=== PATIENT | male | born 1980 | race Caucasian/White ===

== ENCOUNTER → 2016-06-17 | Emergency (ER) | payer MEDICAID, OTHER ==
[~2016-06-17] VITALS: Ht 177.8 cm; Wt 115.6 kg
[~2016-06-17] MED LIST: ACET500C5 PO; ALPR1TAB2 PO; FAMO-18 PO; FAMOTIDINE 20 MG TAB PO ONE; LIDOCAINE/MYLANTA 40 ML BTL PO ONE; MECL-77 PO; OMEP20CA16 PO; ONDA4TAB8 PO
[2016-06-17 23:50] VITALS: Ht 177.8 cm; Wt 115.6 kg
--- NOTE | 2016-06-18 01:19 | RADRPT ---
PROCEDURE: XR Chest. CLINICAL INDICATION: Chest pain. TECHNIQUE: Portable AP view of the chest was obtained. COMPARISON: 08/05/2015 FINDINGS: The cardiomediastinal silhouette is within normal limits. Area of lingular scarring or chronic subs egmental atelectasis is again noted, the remaining lung parenchyma is clear without evidence of pneu monia. There is no evidence for pleural effusion, pneumothorax or pulmonary vascular congestion. T he osseous structures are intact with no evidence for acute abnormality. RPTAT:HJJR IMPRESSION: No evidence for acute intrathoracic pathology or change from 08/05/2015. Physician Mariano Date Time Electronically viewed and signed by Physician Mariano on 06/18/2016 01:19 /
[2016-06-18 02:47] VITALS: BP 157/97; PULSE 68; RESP 15; TEMP 97.6
--- NOTE | 2016-06-18 02:49 | ERD ---
ER Documentation Chief Complaint Date/Time DATE: 06/18/16 TIME: 02:45 Chief Complaint left shoulder pain extending to chest wall x 1 month denies injury HPI 35-year-old male with a past medical history of hypertension presents the ED complaining of chest pain that started intermittently 2 months ago. States that it is worse with eating. States that his primary care physician diagnosed him with acid reflux. Reports that he was taking a acid reflux medication but stopped taking it. States that it was making his symptoms feel better. Denies any dyspnea on exertion, pleuritic chest pain, wheezing, cough, fever, abdominal pain, nausea, vomiting. Denies any family history of heart attacks. States that he was a previous smoker and previously used cocaine however denies any current use of drugs, cigarette use, alcohol use. ROS All systems reviewed and are negative except as per history of present illness. Medications Home Meds Active Scripts Omeprazole* (Omeprazole*) 20 Mg Capsule.dr, 20 MG PO BID, #20 TAB Prov:DEBBIE VIERA PA-C 06/18/16 Alprazolam* (Xanax*) 1 Mg Tab, 1 MG PO Q8H Y for ANXIETY, #20 TAB Prov:RASHIDA ZAVALA NP 09/17/15 Meclizine Hcl* (Meclizine Hcl*) 25 Mg Tablet, 25 MG PO Q8H Y for DIZZINESS, #20 TAB Prov:SAMSON PACHECO PA-C 09/11/15 Ondansetron Hcl* (Zofran*) 4 Mg Tablet, 4 MG PO Q6H for NAUSEA AND/OR VOMITING, #30 TAB Prov:SAMSON PACHECO PA-C 09/11/15 Acetaminophen* (Tylophen*) 500 Mg Capsule, 1 CAP PO Q6H Y for PAIN AND OR ELEVATED TEMP, #16 CAP Prov:MADAN LECHUGA MD 08/05/15 Famotidine* (Pepcid*) 20 Mg Tablet, 20 MG PO BID for 10 Days, TAB Prov:MADAN LECHUGA MD 08/05/15 Allergies Allergies: Coded Allergies: Penicillins (Verified Allergy, Unknown, 09/17/15) PMhx/Soc Medical and Surgical Hx: pt denies Surgical Hx History of Surgery: Yes ("EAR surgery" WHEN HE WAS A ) Anesthesia Reaction: No Hx Neurological Disorder: No Hx Respiratory Disorders: No Hx Cardiac Disorders: Yes (hypertension) Hx Psychiatric Problems: Yes (anxiety) Hx Miscellaneous Medical Probl: No Hx Alcohol Use: Yes (QUIT 1YR 8 MOS AGO) Hx Substance Use: Yes (QUIT COCAINE 1YR 8 MOS AGO) Hx Tobacco Use: No (QUIT 1YR 8 MOS AGO) Smoking Status: Former smoker Physical Exam Vitals Vital Signs Date Time Temp Pulse Resp B/P Pulse Ox O2 Delivery O2 Flow Rate FiO2 06/17/16 23:50 98.4 66 20 164/96 97 Physical Exam Const: [id number], well-nourished. In no acute distress. Head: Atraumatic, normocephalic Eyes: Normal Conjunctiva without injection. No purulent discharge. PERRL. EOMI ENT: Normal external ear. Ear canal without erythema. Tympanic membrane pearly ivey without effusion or bulging. Nasal canal clear with normal turbinates. Moist oropharynx without tonsillar exudates. Non-erythematous pharynx. Uvula midline. No drooling. No trismus. Neck: Full range of motion. No meningismus. No cervical lymphadenopathy. Resp: Clear to auscultation bilaterally. No wheezing, rhonchi, rales, or crackles. No accessory muscle use. No retractions. Cardio: Regular rate and rhythm. No murmurs, rubs or gallops. Abd: Soft, non tender, non distended. Normal bowel sounds. No palpable masses. No rebound tenderness. No guarding. Skin: No petechiae or rashes Back: No midline tenderness. No CVA tenderness. Ext: No cyanosis, or edema. Neur: Awake and alert. Psych: Normal Mood and Affect Results 24 hrs Current Medications Medications (Trade) Dose Ordered Sig/Sonia Route PRN Reason Start Time Stop Time Status Last Admin Dose Admin Miscellaneous Medication (Gi Cocktail (2)) 40 ml ONCE ONCE PO 06/18/16 01:00 06/18/16 01:01 DC 06/18/16 01:13 Famotidine (Pepcid) 20 mg ONCE ONCE PO 06/18/16 01:00 06/18/16 01:01 DC 06/18/16 01:13 Procedures/MDM This is a 35-year-old male with a past medical history of hypertension presents to the ED complaining of left-sided chest pain that started intermittently 2 months ago. Patient has been seen here previously for the same type of chest pain and has been diagnosed with possible acid reflux versus anxiety. Patient is afebrile and nontoxic-appearing. An EKG, chest x-ray, GI cocktail, famotidine was ordered to further evaluate and treat patient here in the ED with improvement. EKG reviewed and interpreted by Dr. Orantes Rate/Rhythm: [65 bpm, Normal Sinus Rhythm] No ectopy, no ST elevations, normal axis. QRS, ST, T-waves: [No changes consistent w/ acute ischemia] Impression: [No evidence of ischemia or arrhythmia] PROCEDURE: XR Chest. CLINICAL INDICATION: Chest pain. TECHNIQUE: Portable AP view of the chest was obtained. COMPARISON: 08/05/2015 FINDINGS: The cardiomediastinal silhouette is within normal limits. Area of lingular scarring or chronic subsegmental atelectasis is again noted, the remaining lung parenchyma is clear without evidence of pneumonia. There is no evidence for pleural effusion, pneumothorax or pulmonary vascular congestion. The osseous structures are intact with no evidence for acute abnormality. RPTAT:HJJR IMPRESSION: No evidence for acute intrathoracic pathology or change from 08/05/2015. Patient symptoms are likely due to possible GERD since patient states that the pain is worse with food. Low suspicion for acute myocardial infarction, pneumothorax, pneumonia, cardiac tamponade, pulmonary embolism, AAA, aortic dissection, Boerhaave's syndrome, cardiac dysrhythmias,meningitis, intracranial bleed, seizure, stroke, TIA or other emergent conditions. Discharge medications: Omeprazole Follow up with primary care physician in 1-2 days for referral to director fraud and electronic technician. Instructed patient to return to the ED sooner for any worsening symptoms. Patient's questions were answered. Patient understood and agreed with discharge plan. Patient discharged stable. Departure Diagnosis: Primary Impression: Chest pain Chest pain type: unspecified Qualified Code: R07.9 - Chest pain, unspecified type Condition: Stable Patient Instructions: Chest Pain, Uncertain Cause, Gerd (Adult) Referrals: COMMUNITY CLINICS YOU HAVE RECEIVED A MEDICAL SCREENING EXAM AND THE RESULTS INDICATE THAT YOU DO NOT HAVE A CONDITION THAT REQUIRES URGENT TREATMENT IN THE EMERGENCY DEPARTMENT. FURTHER EVALUATION AND TREATMENT OF YOUR CONDITION CAN WAIT UNTIL YOU ARE SEEN IN YOUR DOCTORS OFFICE WITHIN THE NEXT 1-2 DAYS. IT IS YOUR RESPONSIBILITY TO MAKE AN APPOINTMENT FOR FOLOW-UP CARE. IF YOU HAVE A PRIMARY DOCTOR --you should call your primary doctor and schedule an appointment IF YOU DO NOT HAVE A PRIMARY DOCTOR YOU CAN CALL OUR PHYSICIAN REFERRAL HOTLINE AT IF YOU CAN NOT AFFORD TO SEE A PHYSICIAN YOU CAN CHOSE FROM THE FOLLOWING [facility] [address] [facility] [address] [facility] [address] [facility] [address] [facility] [address] [facility]. [facility] [address] [facility]. [facility] YOU HAVE RECEIVED A MEDICAL SCREENING EXAM AND THE RESULTS INDICATE THAT YOU DO NOT HAVE A CONDITION THAT REQUIRES URGENT TREATMENT IN THE EMERGENCY DEPARTMENT. FURTHER EVALUATION AND TREATMENT OF YOUR CONDITION CAN WAIT UNTIL YOU ARE SEEN IN YOUR DOCTORS OFFICE WITHIN THE NEXT 1-2 DAYS. IT IS YOUR RESPONSIBILITY TO MAKE AN APPOINTMENT FOR FOLOW-UP CARE. IF YOU HAVE A PRIMARY DOCTOR --you should call your primary doctor and schedule and appointment IF YOU DO NOT HAVE A PRIMARY DOCTOR YOU CAN CALL OUR PHYSICIAN REFERRAL HOTLINE AT . IF YOU CAN NOT AFFORD TO SEE A PHYSICIAN YOU CAN CHOSE FROM THE FOLLOWING [facility]: [facility] [address] [place] [address] [facility] [address] [place] [address] [facility] [address] [place] [address] [facility] URGENT CARE/SPECIALTIES Additional Instructions: FOLLOW UP WITH YOUR PRIMARY CARE PHYSICIAN TOMORROW for a referral to director fraud and electronic technician. Return to this facility if you are not improving as expected. DEBBIE VIERA PA-C Jun 18, 2016 02:49
== END | disposition home or self-care (01) ==
LOC: FTE 23:46
DX: R07.9 Chest pain, unspecified (principal); I10 Essential (primary) hypertension; Z87.891 Personal history of nicotine dependence
CPT/HCPCS: 93005; Z7502; 71010

== ENCOUNTER 2016-07-29 22:55 | Emergency (ER) | payer OTHER ==
[~2016-07-29] VITALS: Ht 175.3 cm; Wt 113.0 kg
[~2016-07-29 22:55] MED LIST changes: -FAMOTIDINE 20 MG TAB PO ONE; -LIDOCAINE/MYLANTA 40 ML BTL PO ONE
[2016-07-29 23:12] VITALS: Ht 175.3 cm; Wt 113.0 kg
[2016-07-30] MEDS ORDERED: LIDOCAINE/MYLANTA 40 ML BTL PO ONE (01:30)
[2016-07-30] MEDS ORDERED: OMEP20CA16 PO (02:39)
--- NOTE | 2016-07-30 05:56 | ERD ---
ER Documentation Chief Complaint Date/Time DATE: 07/30/16 TIME: 05:54 Chief Complaint pt stated he felt dizzy and has a hx of htn, 140/86 HPI 35-year-old male patient with a past medical history of chest discomfort presents to the ED complaining of burning chest pain that was worsened with food earlier today. States that he brought out of omeprazole which usually helps with his symptoms. States that he also took Tylenol at 9:30 PM yesterday for pain. Reports that he has not followed up with a plastic parts designer. States that he also felt slightly nervous when he was watching scary things in the waiting room. Denies any hallucinations. Reports that he was eating hot Cheetos. Denies any suicidal or homicidal ideations. Denies any dyspnea on exertion, pleuritic chest pain, cough, fever, chills, body aches, abdominal pain , nausea, vomiting. ROS All systems reviewed and are negative except as per history of present illness. Medications Home Meds Active Scripts Omeprazole* (Omeprazole*) 20 Mg Capsule., 20 MG PO BID, #30 TAB Prov:DEBBIE VIERA PA-C 07/30/16 Omeprazole* (Omeprazole*) 20 Mg Capsule., 20 MG PO BID, #20 TAB Prov:DEBBIE VIERA PA-C 06/18/16 Alprazolam* (Xanax*) 1 Mg Tab, 1 MG PO Q8H Y for ANXIETY, #20 TAB Prov:RASHIDA ZAVALA NP 09/17/15 Meclizine Hcl* (Meclizine Hcl*) 25 Mg Tablet, 25 MG PO Q8H Y for DIZZINESS, #20 TAB Prov:SAMSON PACHECO PA-C 09/11/15 Ondansetron Hcl* (Zofran*) 4 Mg Tablet, 4 MG PO Q6H for NAUSEA AND/OR VOMITING, #30 TAB Prov:SAMSON PACHECO PA-C 09/11/15 Acetaminophen* (Tylophen*) 500 Mg Capsule, 1 CAP PO Q6H Y for PAIN AND OR ELEVATED TEMP, #16 CAP Prov:MADAN LECHUGA MD 08/05/15 Famotidine* (Pepcid*) 20 Mg Tablet, 20 MG PO BID for 10 Days, TAB Prov:MADAN LECHUGA MD 08/05/15 Allergies Allergies: Coded Allergies: Penicillins (Verified Allergy, Unknown, 09/17/15) PMhx/Soc History of Surgery: Yes ("EAR surgery" WHEN HE WAS A ) Anesthesia Reaction: No Hx Neurological Disorder: No Hx Respiratory Disorders: No Hx Cardiac Disorders: Yes (hypertension) Hx Psychiatric Problems: Yes (anxiety) Hx Miscellaneous Medical Probl: No Hx Alcohol Use: Yes (QUIT 1YR 8 MOS AGO) Hx Substance Use: Yes (QUIT COCAINE 1YR 8 MOS AGO) Hx Tobacco Use: No (QUIT 1YR 8 MOS AGO) Smoking Status: Former smoker Physical Exam Vitals Vital Signs Date Time Temp Pulse Resp B/P Pulse Ox O2 Delivery O2 Flow Rate FiO2 07/29/16 23:12 98.6 73 17 140/86 100 Physical Exam Const: [id number], well-nourished. In no acute distress. Head: Atraumatic, normocephalic Eyes: Normal Conjunctiva without injection. No purulent discharge. PERRL. EOMI ENT: Normal external ear. Ear canal without erythema. Tympanic membrane pearly ivey without effusion or bulging. Nasal canal clear with normal turbinates. Moist oropharynx without tonsillar exudates. Non-erythematous pharynx. Uvula midline. No drooling. No trismus. Neck: Full range of motion. No meningismus. No cervical lymphadenopathy. Resp: Clear to auscultation bilaterally. No wheezing, rhonchi, rales, or crackles. No accessory muscle use. No retractions. Cardio: Regular rate and rhythm. No murmurs, rubs or gallops. Abd: Soft, non tender, non distended. Normal bowel sounds. No palpable masses. No rebound tenderness. No guarding. Skin: No petechiae or rashes Back: No midline tenderness. No CVA tenderness. Ext: No cyanosis, or edema. Neur: Awake and alert. Psych: Normal Mood and Affect Results 24 hrs Current Medications Medications (Trade) Dose Ordered Sig/Sonia Route PRN Reason Start Time Stop Time Status Last Admin Dose Admin Miscellaneous Medication (Gi Cocktail (2)) 40 ml ONCE ONCE PO 07/30/16 01:30 07/30/16 01:31 DC 07/30/16 01:49 Procedures/MDM 35-year-old male patient with a past nuchal history of GERD presents to the ED complaining of chest discomfort after eating. Patient is afebrile and nontoxic- appearing. Patient's normal vital signs per patient stated here in the ED with GI cocktail with improvement of his symptoms. Over for outpatient management. Low suspicion for cholecystitis, choledocholithiasis, cholangitis, pancreatitis , appendicitis, bowel obstruction, ileus, volvulus, nephrolithiasis, pyelonephritis, hepatitis, perforated viscus, diverticulitis, abdominal hernia, acute abdomen, mesenteric ischemia or other emergent conditions. Discharge medications: Omeprazole Follow up with primary care physician in 1-2 days for referral to plastic parts designer. Instructed patient to return to the ED sooner for any worsening symptoms. Patient's questions were answered. Patient understood and agreed with discharge plan. Patient discharged stable. Departure Diagnosis: Primary Impression: Acid reflux Condition: Stable Patient Instructions: Lifestyle Changes for Controlling GERD, Gerd (Adult) Referrals: COMMUNITY CLINICS YOU HAVE RECEIVED A MEDICAL SCREENING EXAM AND THE RESULTS INDICATE THAT YOU DO NOT HAVE A CONDITION THAT REQUIRES URGENT TREATMENT IN THE EMERGENCY DEPARTMENT. FURTHER EVALUATION AND TREATMENT OF YOUR CONDITION CAN WAIT UNTIL YOU ARE SEEN IN YOUR DOCTORS OFFICE WITHIN THE NEXT 1-2 DAYS. IT IS YOUR RESPONSIBILITY TO MAKE AN APPOINTMENT FOR FOLOW-UP CARE. IF YOU HAVE A PRIMARY DOCTOR --you should call your primary doctor and schedule an appointment IF YOU DO NOT HAVE A PRIMARY DOCTOR YOU CAN CALL OUR PHYSICIAN REFERRAL HOTLINE AT IF YOU CAN NOT AFFORD TO SEE A PHYSICIAN YOU CAN CHOSE FROM THE FOLLOWING [facility] [address] [facility]. [facility] [address] [facility] [address] [facility]. [facility] [address] [facility]. [facility] [address] [facility]. [facility]. [address] [facility]. [facility] YOU HAVE RECEIVED A MEDICAL SCREENING EXAM AND THE RESULTS INDICATE THAT YOU DO NOT HAVE A CONDITION THAT REQUIRES URGENT TREATMENT IN THE EMERGENCY DEPARTMENT. FURTHER EVALUATION AND TREATMENT OF YOUR CONDITION CAN WAIT UNTIL YOU ARE SEEN IN YOUR DOCTORS OFFICE WITHIN THE NEXT 1-2 DAYS. IT IS YOUR RESPONSIBILITY TO MAKE AN APPOINTMENT FOR FOLOW-UP CARE. IF YOU HAVE A PRIMARY DOCTOR --you should call your primary doctor and schedule and appointment IF YOU DO NOT HAVE A PRIMARY DOCTOR YOU CAN CALL OUR PHYSICIAN REFERRAL HOTLINE AT . IF YOU CAN NOT AFFORD TO SEE A PHYSICIAN YOU CAN CHOSE FROM THE FOLLOWING [facility] INSTITUTIONS: [facility] [address] [place] [address] [facility] [address] [place] [address] [facility] [address] [place] [address] [facility] URGENT CARE/SPECIALTIES Additional Instructions: Call your primary care doctor TOMORROW for an appointment during the next 2-3 days for a referral to plastic parts designer. See the doctor sooner or return here if your condition worsens before your appointment time. DEBBIE VIERA PA-C Jul 30, 2016 05:56
== END 2016-07-30 02:49 | disposition home or self-care (01) ==
LOC: FTE 22:55
DX: K21.9 Gastro-esophageal reflux disease without esophagitis (principal); I10 Essential (primary) hypertension; Z87.891 Personal history of nicotine dependence
CPT/HCPCS: Z7502; Z7610; 99283

== ENCOUNTER 2016-11-15 22:57 | Emergency (ER) | payer SELFPAY ==
[~2016-11-15 22:57] MED LIST changes: -FAMO-18 PO; +FAMO-96 PO
== END 2016-11-15 23:00 | disposition left against medical advice (07) ==
LOC: E/R 22:57
DX: Z53.21 Procedure and treatment not carried out due to patient leaving prior to being seen by health care provider (principal)

== ENCOUNTER 2017-04-11 16:44 | Emergency (ER) | END 2017-04-11 20:33 | disposition home or self-care (01) ==

== ENCOUNTER 2017-07-04 02:44 | Emergency (ER) | END 2017-07-04 06:30 | disposition left against medical advice (07) ==

== ENCOUNTER 2017-09-30 18:37 | Emergency (ER) | END 2017-09-30 21:58 | disposition home or self-care (01) ==

== ENCOUNTER 2018-07-03 19:22 | Emergency (ER) | payer SELFPAY ==
[~2018-07-03] VITALS: Ht 175.3 cm; Wt 116.8 kg
[~2018-07-03 19:22] MED LIST changes: +CYCL10TA7 PO; +IBUP-1542 PO; +NAPR-688 PO
[2018-07-03 20:06] VITALS: BP 139/75; PULSE 87; RESP 20; Ht 175.3 cm; Wt 116.8 kg
== END 2018-07-04 00:06 | disposition left against medical advice (07) ==
LOC: E/R 19:22
DX: Z53.21 Procedure and treatment not carried out due to patient leaving prior to being seen by health care provider (principal)

== ENCOUNTER 2018-09-07 18:13 | Emergency (ER) | payer OTHER ==
[~2018-09-07] VITALS: Wt 115.4 kg
[2018-09-07] MEDS ORDERED: LIDOCAINE/MYLANTA 40 ML BTL PO STA (19:05)
[2018-09-07] MEDS ORDERED: FAMO-96 PO (20:56)
--- NOTE | 2018-09-07 21:12 | ERD ---
ER Documentation Chief Complaint Chief Complaint EPIGASTRIC PAIN AFTER EATING X'S 2 WEEKS HPI Patient is a 37-year-old male with past medical history of hypertension who presents the ER for concerns of epigastric pain as well as chest pain for the last 2 weeks. Patient states pain is localized to the left side of his chest. Patient states the pain makes him nervous. Patient states pain only occurs after he eats. Pain is not pleuritic. Pain is nonradiating. He states it lasts for approximately 10 to 20 minutes and then resolves. Patient does admit to eating spicy foods, fried foods, salty foods. Patient denies any shortness of breath, left upper extremity pain, nausea, vomiting, acute confusion or LOC. Patient states he has had similar symptoms in the past. ROS All systems reviewed and are negative except as per history of present illness. Medications Home Meds Active Scripts Famotidine* (Pepcid*) 20 Mg Tablet, 20 MG PO DAILY for 30 Days, TAB Prov:DANICA JULIENC 09/07/18 Cyclobenzaprine Hcl* (Cyclobenzaprine Hcl*) 10 Mg Tablet, 10 MG PO Q8 PRN for MUSCLE SPASMS, #30 TAB Prov:NICK HERNANDEZC 09/30/17 Naproxen* (Naproxen*) 500 Mg Tablet, 500 MG PO BID, #30 TAB Prov:NICK HERNANDEZC 09/30/17 Ibuprofen* (Motrin*) 600 Mg Tab, 600 MG PO Q6, #30 TAB Prov:DEBBIE VIERAC 04/11/17 Omeprazole* (Omeprazole*) 20 Mg Capsule., 20 MG PO BID, #30 TAB Prov:DEBBIE VIERAC 07/30/16 Omeprazole* (Omeprazole*) 20 Mg Capsule., 20 MG PO BID, #20 TAB Prov:DEBBIE VIERAC 06/18/16 Alprazolam* (Xanax*) 1 Mg Tab, 1 MG PO Q8H PRN for ANXIETY, #20 TAB Prov:RASHIDA ZAVALA NP 09/17/15 Meclizine Hcl* (Meclizine Hcl*) 25 Mg Tablet, 25 MG PO Q8H PRN for DIZZINESS, #20 TAB Prov:SAMSON PACHECO PA-C 09/11/15 Ondansetron Hcl* (Zofran*) 4 Mg Tablet, 4 MG PO Q6H for NAUSEA AND/OR VOMITING, #30 TAB Prov:SAMSON PACHECO PA-C 09/11/15 Acetaminophen* (Tylophen*) 500 Mg Capsule, 1 CAP PO Q6H PRN for PAIN AND OR ELEVATED TEMP, #16 CAP Prov:MADAN LECHUGA MD 08/05/15 Famotidine* (Pepcid*) 20 Mg Tablet, 20 MG PO BID for 10 Days, TAB Prov:MADAN LECHUGA MD 08/05/15 Allergies Allergies: Coded Allergies: Penicillins (Verified Allergy, Unknown, 07/03/18) PMhx/Soc History of Surgery: Yes ("EAR surgery" WHEN HE WAS A ) Anesthesia Reaction: No Hx Neurological Disorder: No Hx Respiratory Disorders: No Hx Cardiac Disorders: Yes (hypertension) Hx Psychiatric Problems: Yes (anxiety) Hx Miscellaneous Medical Probl: No Hx Alcohol Use: No (QUIT) Hx Substance Use: No (QUIT COCAINE) Hx Tobacco Use: No (QUIT) Smoking Status: Former smoker FmHx Family History: No diabetes Physical Exam Vitals Vital Signs Date Temp Pulse Resp B/P (MAP) Pulse Ox O2 O2 Flow FiO2 Time Delivery Rate 09/07/18 98.8 77 18 168/83 98 18:37 (111) Physical Exam GENERAL: Well-developed, well-nourished male. Appears in no acute distress. Speaking in full sentences HEAD: Normocephalic, atraumatic. No deformities or ecchymosis. EYE: Pupils equal, round, and reactive to light. EOMs intact. No conjunctival erythema. No eye discharge. ENT: Moist mucous membranes. Uvula is midline. LUNG: Clear to auscultation bilaterally. No rhonchi, wheezing, rales or coarse breath sounds. HEART: Regular rate and rhythm. No murmurs, rubs or gallops. ABDOMEN: Soft,nondistended. Tender to palpation of the epigastric region. Positive bowel sounds in all four quadrants. No rebound tenderness, no guarding. (-) McBurney's point tenderness. No CVA tenderness. EXTREMITES: Equal pulses bilaterally. No peripheral clubbing, cyanosis or edema. No unilateral leg swelling. NEUROLOGIC: Alert and oriented to person, place and time. Moving all four ex tremities. 5/5 strength in all extremities. Normal speech. Steady gait. SKIN: Normal color. Warm and dry. No rashes or lesions. Result Diagram: 09/07/18193309/[id number] Results 24 hrs Laboratory Tests Test 09/07/18 19:34 09/07/18 20:27 White Blood Count 7.5 10^3/ul Red Blood Count 5.34 10^6/ul Hemoglobin 14.1 g/dl Hematocrit 43.1 % Mean Corpuscular Volume 80.7 fl Mean Corpuscular Hemoglobin 26.4 pg Mean Corpuscular Hemoglobin Concent 32.7 g/dl Red Cell Distribution Width 13.4 % Platelet Count 329 10^3/UL Mean Platelet Volume 9.7 fl Immature Granulocytes % 0.300 % Neutrophils % 55.8 % Lymphocytes % 29.9 % Monocytes % 10.7 % Eosinophils % 2.8 % Basophils % 0.5 % Nucleated Red Blood Cells % 0.0 /100WBC Immature Granulocytes # 0.020 10^3/ul Neutrophils # 4.2 10^3/ul Lymphocytes # 2.2 10^3/ul Monocytes # 0.8 10^3/ul Eosinophils # 0.2 10^3/ul Basophils # 0.0 10^3/ul Nucleated Red Blood Cells # 0.0 10^3/ul Sodium Level 141 mmol/L Potassium Level 4.0 mmol/L Chloride Level 106 mmol/L Carbon Dioxide Level 24 mmol/L Anion Gap 11 Blood Urea Nitrogen 14 mg/dl Creatinine 1.12 mg/dl Est Glomerular Filtrat Rate mL/min > 60 mL/min Glucose Level 103 mg/dl Calcium Level 9.2 mg/dl Total Bilirubin 0.3 mg/dl Direct Bilirubin 0.00 mg/dl Indirect Bilirubin 0.3 mg/dl Aspartate Amino Transf (AST/SGOT) 22 IU/L Alanine Aminotransferase (ALT/SGPT) 25 IU/L Alkaline Phosphatase 85 IU/L Troponin I < 0.012 ng/ml Total Protein 7.8 g/dl Albumin 4.5 g/dl Globulin 3.30 g/dl Albumin/Globulin Ratio 1.36 Lipase 84 U/L Urine Color YELLOW Urine Clarity CLEAR Urine pH 6.0 Urine Specific [place] 1.025 Urine Ketones NEGATIVE mg/dL Urine Nitrite NEGATIVE mg/dL Urine Bilirubin NEGATIVE mg/dL Urine Urobilinogen 1+ mg/dL Urine Leukocyte Esterase NEGATIVE Matt/ul Urine Hemoglobin NEGATIVE mg/dL Urine Glucose NEGATIVE mg/dL Urine Total Protein NEGATIVE mg/dl Current Medications Medications Dose Sig/Sonia Start Time Status Last (Trade) Ordered Route PRN Stop Time Admin Dose Reason Admin 40 ml ONCE STAT 09/07/18 DC 09/07/18 Miscellaneous PO 19:05 19:17 Medication 09/07/18 19:07 (Gi Cocktail (2)) Procedures/MDM ED COURSE: The patient was stable throughout ED course. I kept the patient and/or family informed of laboratory and diagnostic imaging results throughout the ED course. EKG: Read by Dr. Mehta, attending physician. EKG shows normal sinus rhythm at a rate of at 71 bpm. Nonspecific T wave changes were noted. No ST elevations noted. DIAGNOSTIC IMAGING: Read by radiologist. DIAGNOSTIC IMAGING REPORT Patient: ANAND FUNEZ : 1980 Age: 37 Sex: M MR #: [id number] DOS: 09/07/18 1905 Ordering MD: DANICA JULIEN PA-C Location: [facility] Room/Bed: PROCEDURE: XR Chest. CLINICAL INDICATION: Chest pain. TECHNIQUE: Single frontal chest x-ray. COMPARISON: CR CHEST 06/18/2016; CR CHEST 08/05/2015 FINDINGS: The cardiomediastinal silhouette is unremarkable. Mild left basilar atelectasis is noted. No pneumothorax, pleural effusion or consolidation is seen. No acute osseous abnormality is noted. IMPRESSION: 1. Mild left basilar atelectasis. Otherwise no acute cardiopulmonary abnormality. RPTAT: HFN .Florentin Joseph MD, MD Date Time Electronically viewed and signed by .Florentin Joseph MD, MD on 09/07/2018 20:44 .N/ CC: DANICA JULIEN PA-C [id number] PROCEDURES: None. MEDICATIONS GIVEN: GI cocktail Patient tolerated medication well with no adverse reactions. Patient reported improvement in pain. MEDICAL DECISION MAKING: This is a 37-year-old male with past medical history of hypertension presents the ER for concerns of epigastric pain as well as chest pain which occur after eating. Patient states his been having symptoms for last 2 weeks. Patient does admit to diet of spicy and fried foods.. Vital signs were reviewed. Patient is afebrile. Patient was not hypoxic. On exam, patient did have pain in the epigastric region. Patient had no pain in the right upper quadrant. Patient was given a GI cocktail. Blood work was obtained. CBC showed no evidence of systemic infection or severe anemia. CMP showed no evidence of electrolyte abnormalities, severe acidosis, alkalosis, renal failure, or liver disease. Troponin was within normal limits. EKG showed normal sinus rhythm. Nonspecific ST changes noted. Lipase showed no evidence of acute pancreatitis. UA showed no evidence of acute infection or hematuria. Upon reexamination, patient reported improvement in pain. Patient was advised that he will need to follow-up with a GI specialist on outpatient basis for further management of his symptoms. Dietary changes were advised. Patient likely has GERD versus gastritis. Patient advised I am unable to rule out PUD at this time. Patient will likely need endoscopy. Differential diagnosis included but was not limited to acute coronary syndrome, arrhythmia, pericarditis, pneumothorax, PE, ACS, AAA, mesenteric ischemia, lower lobe pneumonia, DKA, bowel perforation, cholecystitis, choledocholithiasis, ascending cholangitis, hepatic abscess, pancreatitis, splenic rupture, diverticulitis, UTI, pyelonephritis, nephrolithiasis, appendicitis, constipation, testicular torsion, epididymitis, urethritis, or prostatitis. Patient was nontoxic, [id number] prior to discharge. PRESCRIPTIONS: Pepcid DISCHARGE: At this time, patient is stable for discharge and outpatient management. I have instructed the patient to follow-up with his/her primary care physician in 1-2 days. I have instructed the patient to promptly return to the ER at any time for any new or worsening symptoms including increased pain, nausea, vomiting, diarrhea, fever, weakness or LOC. The patient and/or family expressed understanding of and agreement with this plan. All questions were answered. Home care instructions were provided. Patient's blood pressure was elevated (>120/80) but appears stable without evidence of hypertensive emergency, hypertensive urgency or end-organ failure. I had discussion with the patient about the risks of hypertension. I have advised the patient to follow up with his/her primary care physician for outpatient monitoring and treatment for hypertension in 2-3 days. I have instructed the patient to return to the ER for any new or worsening symptoms including chest pain, shortness of breath, headache, blurred vision, confusion, nausea, vomiting or LOC. Disclaimer: Inadvertent spelling and grammatical errors are likely due to EHR/dictation software use and do not reflect on the overall quality of patient care. Also, please note that the electronic time recorded on this note does not necessarily reflect the actual time of the patient encounter. Departure Diagnosis: Primary Impression: Epigastric pain Additional Impression: Chest pain Chest pain type: unspecified Qualified Codes: R07.9 - Chest pain, unspecified Condition: Fair Patient Instructions: Gerd (Adult), Epigastric Pain (Uncertain Cause) Referrals: [facility] YOU HAVE RECEIVED A MEDICAL SCREENING EXAM AND THE RESULTS INDICATE THAT YOU DO NOT HAVE A CONDITION THAT REQUIRES URGENT TREATMENT IN THE EMERGENCY DEPARTMENT. FURTHER EVALUATION AND TREATMENT OF YOUR CONDITION CAN WAIT UNTIL YOU ARE SEEN IN YOUR DOCTORS OFFICE WITHIN THE NEXT 1-2 DAYS. IT IS YOUR RESPONSIBILITY TO MAKE AN APPOINTMENT FOR FOLOW-UP CARE. IF YOU HAVE A PRIMARY DOCTOR --you should call your primary doctor and schedule an appointment IF YOU DO NOT HAVE A PRIMARY DOCTOR YOU CAN CALL OUR PHYSICIAN REFERRAL HOTLINE AT IF YOU CAN NOT AFFORD TO SEE A PHYSICIAN YOU CAN CHOSE FROM THE FOLLOWING [facility] [address] [facility]. [facility] [address] [facility] [address] [facility] [facility] [address] [facility]. [facility] [address] [facility]. [facility]. [address] [facility]. [facility] YOU HAVE RECEIVED A MEDICAL SCREENING EXAM AND THE RESULTS INDICATE THAT YOU DO NOT HAVE A CONDITION THAT REQUIRES URGENT TREATMENT IN THE EMERGENCY DEPARTMENT. FURTHER EVALUATION AND TREATMENT OF YOUR CONDITION CAN WAIT UNTIL YOU ARE SEEN IN YOUR DOCTORS OFFICE WITHIN THE NEXT 1-2 DAYS. IT IS YOUR RESPONSIBILITY TO MAKE AN APPOINTMENT FOR FOLOW-UP CARE. IF YOU HAVE A PRIMARY DOCTOR --you should call your primary doctor and schedule and appointment IF YOU DO NOT HAVE A PRIMARY DOCTOR YOU CAN CALL OUR PHYSICIAN REFERRAL HOTLINE AT . IF YOU CAN NOT AFFORD TO SEE A PHYSICIAN YOU CAN CHOSE FROM THE FOLLOWING [facility] INSTITUTIONS: [facility] [address] [place] [address] [facility] [address] [place] [address] [facility] [address] [place] [address] Additional Instructions: Unable to rule out any peptic ulcers at this time. Follow-up with your primary care physician for referral to GI specialist. Avoid spicy, acidic, fried foods. Avoid alcohol. Call your primary care doctor TOMORROW for an appointment during the next 1-2 days.See the doctor sooner or return here if your condition worsens before your appointment time. DANICA JULIEN PA-C September 07, 2018 21:12
[2018-09-07 21:48] VITALS: BP 149/95; PULSE 58; RESP 18
--- NOTE | 2018-09-08 14:25 | RADRPT ---
ANAND FUNEZ :1980 Sex:M Status: RECONFIRMED ACC:[id number] Exam DATE:2018-09-07 19:21:00 Vent Rate: 71 bpm RR Interval: 0 msec LA Interval: 168 msec QRS Duration: 96 msec QT Interval: 376 msec QTC Interval: 408 msec P-R-T [place]: 22 - 5 - -11 degrees Normal sinus rhythm Voltage criteria for left ventricular hypertrophy Inferior infarct , age undetermined Abnormal ECG Electronically Signed By: [facility]
== END 2018-09-07 21:50 | disposition home or self-care (01) ==
LOC: FTE 18:13
DX: R10.13 Epigastric pain (principal); I10 Essential (primary) hypertension; R07.9 Chest pain, unspecified; Z87.891 Personal history of nicotine dependence
CPT/HCPCS: 36415; 71045; 80053; 81003; 83690; 84484; 85025; 93005; Z7502; Z7610

== ENCOUNTER 2018-12-09 13:16 | Emergency (ER) | payer OTHER ==
[~2018-12-09] VITALS: Ht 175.3 cm; Wt 113.6 kg
[~2018-12-09 13:16] MED LIST changes: +LORA-441 PO
[2018-12-09 13:23] VITALS: BP 141/96; PULSE 70; RESP 18; Ht 175.3 cm; Wt 113.6 kg
--- NOTE | 2018-12-09 14:26 | ERD ---
ER Documentation Chief Complaint Chief Complaint pt stated feeling dizzy after taking meds benazipril, ibuprofen, bactrim HPI 38-year-old male, with history of hypertension and anxiety, presents the emergency department, complaining of anxiety and dizziness after taking Bactrim and ibuprofen prescribed by his PCP for tonsillitis. He denies chest pain, no shortness of breath, no rashes, the patient refers history of similar episodes in the past but less intense. ROS All systems reviewed and are negative except as per history of present illness. Medications Home Meds Active Scripts Lorazepam* (Ativan*) 0.5 Mg Tablet, 0.5 MG PO Q8H PRN for ANXIETY, #15 TAB Prov:MATIAS SANFORD MD 12/09/18 Famotidine* (Pepcid*) 20 Mg Tablet, 20 MG PO DAILY for 30 Days, TAB Prov:DANICA JULIENC 09/07/18 Cyclobenzaprine Hcl* (Cyclobenzaprine Hcl*) 10 Mg Tablet, 10 MG PO Q8 PRN for MUSCLE SPASMS, #30 TAB Prov:NICK HERNANDEZC 09/30/17 Naproxen* (Naproxen*) 500 Mg Tablet, 500 MG PO BID, #30 TAB Prov:NICK HERNANDEZC 09/30/17 Ibuprofen* (Motrin*) 600 Mg Tab, 600 MG PO Q6, #30 TAB Prov:DEBBIE VIERA PA-C 04/11/17 Omeprazole* (Omeprazole*) 20 Mg Capsule., 20 MG PO BID, #30 TAB Prov:DEBBIE VIERAC 07/30/16 Omeprazole* (Omeprazole*) 20 Mg Capsule., 20 MG PO BID, #20 TAB Prov:DEBBIE VIERAC 06/18/16 Alprazolam* (Xanax*) 1 Mg Tab, 1 MG PO Q8H PRN for ANXIETY, #20 TAB Prov:RASHIDA ZAVALA NP 09/17/15 Meclizine Hcl* (Meclizine Hcl*) 25 Mg Tablet, 25 MG PO Q8H PRN for DIZZINESS, #20 TAB Prov:SAMSON PACHECOC 09/11/15 Ondansetron Hcl* (Zofran*) 4 Mg Tablet, 4 MG PO Q6H for NAUSEA AND/OR VOMITING, #30 TAB Prov:SAMSON PACHECO PA-C 09/11/15 Acetaminophen* (Tylophen*) 500 Mg Capsule, 1 CAP PO Q6H PRN for PAIN AND OR ELEVATED TEMP, #16 CAP Prov:MADAN LECHUGA MD 08/05/15 Famotidine* (Pepcid*) 20 Mg Tablet, 20 MG PO BID for 10 Days, TAB Prov:MADAN LECHUGA MD 08/05/15 Allergies Allergies: Coded Allergies: Penicillins (Verified Allergy, Unknown, 07/03/18) PMhx/Soc History of Surgery: Yes ("EAR surgery" WHEN HE WAS A ) Anesthesia Reaction: No Hx Neurological Disorder: No Hx Respiratory Disorders: No Hx Cardiac Disorders: Yes (hypertension) Hx Psychiatric Problems: Yes (anxiety) Hx Miscellaneous Medical Probl: No Hx Alcohol Use: No (QUIT) Hx Substance Use: No (QUIT COCAINE) Hx Tobacco Use: No (QUIT) Smoking Status: Former smoker FmHx Family History: diabetes; No coronary disease Physical Exam Vitals Vital Signs Date Temp Pulse Resp B/P (MAP) Pulse Ox O2 O2 Flow FiO2 Time Delivery Rate 12/09/18 98.1 70 18 141/96 98 13:23 (111) Physical Exam Const: No acute distress Head: Atraumatic Eyes: Normal Conjunctiva ENT: Normal External Ears, Nose and Mouth. Neck: Full range of motion. No meningismus. Resp: Clear to auscultation bilaterally Cardio: Regular rate and rhythm, no murmurs Abd: Soft, non tender, non distended. Normal bowel sounds Skin: No petechiae or rashes Back: No midline or flank tenderness Ext: No cyanosis, or edema Neur: Awake and alert Psych: Normal Mood and Affect Procedures/MDM Vital signs stable, Physical exam unremarkable, neurovascular exam intact. Differential diagnosis include but not limited to: Allergic reaction, anxiety, medication side effect. Physical examination and clinical presentation consistent most likely with anxiety. During the ED course the patient remained stable, no new complaints. The patient received treatment with lorazepam presenting overall improvement of the symptoms. Treatment options, results and clinical impression discussed with patient who agrees with management. The patient is stable to be treated outpatient and will be discharged home with a Rx for lorazepam, some side effects of prescribed medications (headache, rash, nausea, vomiting, diarrhea, drowsiness, habituat ion, bleeding, hypertension, interactions with other medications) were reviewed. The patient was instructed to follow up with the primary care provider in the next 48h. If symptoms persist, worsen or new symptoms develop, then patient should return to the ED immediately. Instructions explained and given directly by me to the patient with acknowledgment and demonstrated understanding. Disclaimer: Inadvertent spelling and grammatical errors are likely due to EHR/dictation software use and do not reflect on the overall quality of patient care. Also, please note that the electronic time recorded on this note does not necessarily reflect the actual time of the patient encounter. Departure Diagnosis: Primary Impression: Anxiety reaction Condition: Stable Patient Instructions: Anxiety Reaction Additional Instructions: Thank you very much for allowing us to participate in your care. Your health and safety is our top priority at [facility]. The evaluation in the emergency department has been done to rule out an acute emergency. Chronic, [id number] conditions may have not been evaluated; therefore, you need to follow up with a primary care provider in the next 48h. If symptoms persist, worsen or new symptoms develop, then patient sh ould return to the ED immediately. Call your primary care doctor TOMORROW for an appointment during the next 2-4 days and bring all the information provided. Have prescriptions filled and follow precisely the directions on the label. If the symptoms get worse and your provider is unavailable, return to the Emergency Department immediately. MATIAS SANFORD MD Dec 09, 2018 14:26
== END 2018-12-09 14:47 | disposition home or self-care (01) ==
LOC: FTE 13:16
DX: F41.1 Generalized anxiety disorder (principal); I10 Essential (primary) hypertension; Z87.891 Personal history of nicotine dependence
CPT/HCPCS: 99283

== ENCOUNTER 2019-01-11 18:40 | Emergency (ER) | payer OTHER ==
[~2019-01-11] VITALS: Ht 165.1 cm; Wt 114.2 kg
[~2019-01-11 18:40] MED LIST changes: -OMEP20CA16 PO; +OMEP20CA17 PO
[2019-01-11 19:04] VITALS: Ht 165.1 cm; Wt 114.2 kg
[2019-01-11 23:28] VITALS: BP 114/80; PULSE 63; RESP 20
== END 2019-01-11 23:28 | disposition home or self-care (01) ==
LOC: E/R 18:40
DX: R00.2 Palpitations (principal); R42 Dizziness and giddiness; I10 Essential (primary) hypertension; Z87.891 Personal history of nicotine dependence
CPT/HCPCS: 36415; 71045; 80053; 84484; 85025; 93005; Z7502